=== PATIENT | male | born 1990 | race Caucasian/White ===

== ENCOUNTER 2020-07-22 17:45 | Outpatient (REF) | payer OTHER, SELFPAY ==
[2020-07-22 19:36] LABS: SARS COV2 PCR INHOUSE NEGATIVE (Negative)
== END 2020-07-22 17:46 | disposition home or self-care (01) ==
LOC: HO.LAB 17:45
PROVIDERS: Visit Provider Internal Medicine
DX: Z20.828 Contact with and (suspected) exposure to other viral communicable diseases (principal)
CPT/HCPCS: 87635

== ENCOUNTER 2020-08-29 11:42 | Outpatient (REF) | payer OTHER, SELFPAY ==
[2020-08-29 12:08] LABS: COVID-19 Test Positive (Negative)
== END 2020-08-29 11:43 | disposition home or self-care (01) ==
LOC: HO.LAB 11:42
PROVIDERS: Visit Provider Internal Medicine
DX: Z20.828 Contact with and (suspected) exposure to other viral communicable diseases (principal)
CPT/HCPCS: 87635; C9803